=== PATIENT | female | born 1975 | race Caucasian/White ===

== ENCOUNTER 2024-01-20 07:59 | Day surgery (SDC) | payer MEDICARE, MEDICAID ==
[~2024-01-20] VITALS: Ht 165.1 cm; Wt 136.5 kg
[~2024-01-20 07:59] MED LIST: ABIL1INJ IM; CALM1OIN TP; CYAN-11 PO; DILT240C83 PO; FERR325T3 PO; FLUO20CA22 PO; FLUO40CA PO; LOSA25TA13 PO; MOME13HF7 INH; NICO1DIS11 TD; PRED10PA2 PO; RA M500C PO; RAME8TAB2 PO; SEMA0.257 SC; SPIR12.9 INH; TERB250T91 PO; TRAZ-257 PO; VALA1TAB5 PO; VITA500045 PO
[2024-01-20] MEDS ORDERED: LR 1,000 ML IV SCH (08:30)
[2024-01-20] MEDS ORDERED: LIDOCAINE 2% 100MG/5ML SDV (FOR ANES.) As Ordered ONE (09:34)
[2024-01-20] MEDS ORDERED: SUGAMMADEX SODIUM 500 MG/5 ML VIAL (BRIDION) As Ordered ONE (09:34)
[2024-01-20] MEDS ORDERED: fentaNYL 100 MCG/2 ML INJECTION As Ordered ONE (09:34)
[2024-01-20] MEDS ORDERED: ROCURONIUM BROMIDE 50MG/5ML VIAL As Ordered ONE (09:34)
[2024-01-20] MEDS ORDERED: MIDAZOLAM INJ 2MG/2ML VIAL As Ordered ONE (09:34)
[2024-01-20] MEDS ORDERED: propofoL 200 MG/20 ML VIAL As Ordered ONE (09:34)
[2024-01-20] MEDS ORDERED: ONDANSETRON 4MG 2ML VIAL As Ordered ONE (09:34)
[2024-01-20] MEDS ORDERED: KETOROLAC 60MG 2ML VIAL As Ordered ONE (09:34)
[2024-01-20] MEDS ORDERED: ACETAMINOPHEN 1000MG 100ML IV BAG As Ordered ONE (09:35)
[2024-01-20] MEDS: LIDOCAINE W/EPINEPHRINE 1% 20ML VIAL As Ordered ONE (11:00)
[2024-01-20] MEDS ORDERED: ePHEDrine SULFATE 25 MG/5 ML(5MG/ML) SYRINGE As Ordered ONE (11:02)
[2024-01-20] MEDS ORDERED: ONDANSETRON 4MG 2ML VIAL IV PRN (11:20)
[2024-01-20] MEDS ORDERED: MORPHINE 2 MG/ML 1ML VIAL IV PRN (11:20)
[2024-01-20] MEDS ORDERED: fentaNYL 100 MCG/2 ML INJECTION IV PRN (11:20)
[2024-01-20] MEDS: oxyCODONE 5MG TAB PO PRN (11:51)
[2024-01-20 12:21] VITALS: BP 130/75; TEMP 97.1; O2SAT 96
== END 2024-01-20 12:48 | disposition home or self-care (01) ==
LOC: M SDC 07:59
PROVIDERS: ATTEND Dentist Oral and Maxillofacial Surgery
DX: K02.9 Dental caries, unspecified (principal); I10 Essential (primary) hypertension; E11.9 Type 2 diabetes mellitus without complications; A60.00 Herpesviral infection of urogenital system, unspecified; G47.33 Obstructive sleep apnea (adult) (pediatric); F41.9 Anxiety disorder, unspecified; F32.A Depression, unspecified; F43.10 Post-traumatic stress disorder, unspecified; Z98.84 Bariatric surgery status; J44.9 Chronic obstructive pulmonary disease, unspecified; Z79.899 Other long term (current) drug therapy; Z87.891 Personal history of nicotine dependence; Z88.2 Allergy status to sulfonamides
CPT/HCPCS: 41899; 81025; 88300; J0131; J1100; J2250; J2405; J3010